=== PATIENT | female | born 1950 | race American Indian/Alaskan Native ===

== ENCOUNTER 2016-08-24 00:24 | Inpatient (IN) | payer MEDICARE, BC ==
[2016-08-24 00:52] VITALS: BMI 34.7
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
[2016-08-24 02:03] LABS: HEMATOCRIT 36.2 % (36.0-48.0); MEAN CORPUSCULAR HGB CONC 33.7 g/dl (31.0-37.0); MEAN PLATELET VOLUME 13.4 fl (7.0-11.0); RED CELL DISTRIBUTION WIDTH 13.4 % (11.5-14.5); WHITE BLOOD COUNT 8.5 10^3/ul (4.5-11.0)
[2016-08-24 02:07] LABS: ALB/GLOB RATIO 1.1 (1.1-1.8); ALKALINE PHOSPHATASE 118 U/L (38-133); ALT/SGPT 32 U/L (7-56); AST/SGOT 24 U/L (15-39); BILIRUBIN,TOTAL 0.3 mg/dL (0.2-1.3); BLOOD UREA NITROGEN 17 mg/dL (7-21); CALCIUM 8.7 mg/dL (8.4-10.5); CARBON DIOXIDE 26 mmol/L (21-33); CHLORIDE 110 mmol/L (98-107); GFR AFRICAN-AMERICAN > 60; GLUCOSE,RANDOM 104 mg/dL (70-110); POTASSIUM 3.9 mmol/L (3.6-5.0); SODIUM 142 mmol/L (132-148); TOTAL PROTEIN 6.9 g/dL (5.8-8.3)
[2016-08-24 02:09] LABS: PARTIAL THROMBOPLASTIN TIME 28.9 Seconds (23.7-30.8)
[2016-08-24] MEDS ORDERED: Vancomycin 1gm in NS 250ml 1 GM/250 ML BAG IVPB STA (03:52)
[2016-08-24] MEDS ORDERED: Piperacillin/Tazobact 3.375 gm 100 ML IV STA (03:52)
[2016-08-24] MEDS ORDERED: Piperacillin/Tazobact 3.375 gm 100 ML IVPB SCH (09:45)
--- NOTE | 2016-08-24 11:54 | RAD ---
PROCEDURE: Radiographs of the right great toe. TECHNIQUE:: AP radiograph of the right foot, with oblique and lateral view of the right great toe. COMPARISON: None. FINDINGS: BONES: Normal. No fracture. JOINTS: Normal. SOFT TISSUES: Normal. OTHER FINDINGS: None. IMPRESSION: Normal right great toe radiographs.
--- NOTE | 2016-08-24 13:25 | US ---
HISTORY: Leg pain and swelling. Evaluate for DVT PHYSICIAN(S): Nael Ariza MD. TECHNIQUE: Duplex sonography and color-flow Doppler with graded compression were used to evaluate the deep venous systems of both lower extremities. FINDINGS: The visualized deep venous systems of both lower extremities are sonographically normal and compressible. Normal wave forms and augmentation are seen. There is no sonographic evidence for deep venous thrombosis in the visualized segments of both lower extremities. IMPRESSION: No sonographic evidence for deep venous thrombosis in the visualized segments of both lower extremities.
--- NOTE | 2016-08-24 13:34 | CP.PCM.CON ---
History of Present Illness - History of Present Illness History of Present Illness: 66 year old male with PMH of HTN, obesity with BMI 35 came in to [facility] complaining of bilateral lower extremity swelling, with the right leg more swollen than the left, associated with pain and redness which worsened in the past 2-3 days. She apparently injured her foot about 2 months ago and since then her right leg has been giving her trouble, but this is worse than previous episodes according to the patient. She also had a wound on the right leg a month ago, which has apparently healed. She denies very recent trauma, no wading or swimming, no walking barefoot on soil, denies animal contacts. She denies fever or chills, no nausea or vomiting, no headache or dizziness, no chest pain, no SOB, no abdominal pain, no diarrhea, no dysuria, no sore throat, no cough or rhinorrhea. Infectious diseases consult is requested to further evaluate and manage. Review of Systems - Review of Systems All systems: reviewed and no additional remarkable complaints except (as per HPI ) Past Patient History - Infectious Disease Hx of Infectious Diseases: None - Past Social History Smoking Status: Current Some Days Smoker - CARDIAC Hx Cardiac Disorders: Yes Hx Hypertension: Yes - PULMONARY Hx Respiratory Disorders: No - NEUROLOGICAL Hx Neurological Disorder: No - HEENT Hx HEENT Problems: No - RENAL Hx Chronic Kidney Disease: No - ENDOCRINE/METABOLIC Hx Endocrine Disorders: No - HEMATOLOGICAL/ONCOLOGICAL Hx Blood Disorders: No - INTEGUMENTARY Hx Dermatological Problems: No - MUSCULOSKELETAL/RHEUMATOLOGICAL Hx Musculoskeletal Disorders: No - GASTROINTESTINAL Hx Gastrointestinal Disorders: No - GENITOURINARY/GYNECOLOGICAL Hx Genitourinary Disorders: No - PSYCHIATRIC Hx Psychophysiologic Disorder: No - SURGICAL HISTORY Hx Surgeries: No - ANESTHESIA Hx Anesthesia: No Hx Anesthesia Reactions: No Hx Malignant Hyperthermia: No Meds Allergies/Adverse Reactions: Allergies Allergy/AdvReac Type Severity Reaction Status Date / Time No Known Allergies Allergy Verified 05/11/16 12:18 Physical Exam - Constitutional Appears: Non-toxic, No Acute Distress - Head Exam Head Exam: NORMAL INSPECTION - ENT Exam ENT Exam: Mucous Membranes Moist - Neck Exam Neck exam: Negative for: Lymphadenopathy, Meningismus - Respiratory Exam Respiratory Exam: Decreased Breath Sounds - Cardiovascular Exam Cardiovascular Exam: +S1, +S2 - GI/Abdominal Exam GI & Abdominal Exam: Soft. absent: Tenderness - Extremities Exam Additional comments: some swelling and mild erythema of the right lower extremity, minimal tenderness noted; no purulence or discharge noted Results - Vital Signs Recent Vital Signs: Last Vital Signs Temp 97.7 F 08/24/16 06:12 Pulse 67 08/24/16 06:12 Resp 18 08/24/16 06:12 BP 158/73 H 08/24/16 06:12 Pulse Ox 98 08/24/16 04:19 - Labs Result Diagrams: 08/24/16 01:45 08/24/16 01:45 Assessment & Plan - Assessment and Plan (Free Text) Plan: Assessment Consider right lower extremity non-purulent cellulitis R/O DVT HTN obesity with BMI 35 Plan Started patient on Ceftaroline pending blood cx; follow up ultrasound of the leg to rule out DVT Will monitor clinically
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
[2016-08-25 07:18] LABS: MEAN CELL VOLUME 86.2 fL (80.0-105.0); MEAN CORPUSCULAR HEMOGLOBIN 28.1 pg (25.0-35.0); MEAN CORPUSCULAR HGB CONC 32.6 g/dl (31.0-37.0); MEAN PLATELET VOLUME 13.5 fl (7.0-11.0); RED CELL DISTRIBUTION WIDTH 13.2 % (11.5-14.5); WHITE BLOOD COUNT 6.8 10^3/ul (4.5-11.0)
[2016-08-25 07:35] LABS: ALKALINE PHOSPHATASE 99 U/L (38-133); ALT/SGPT 35 U/L (7-56); AST/SGOT 24 U/L (15-39); BILIRUBIN,TOTAL 0.4 mg/dL (0.2-1.3); BLOOD UREA NITROGEN 16 mg/dL (7-21); CALCIUM 8.6 mg/dL (8.4-10.5); CARBON DIOXIDE 26 mmol/L (21-33); CHLORIDE 108 mmol/L (95-110); GFR AFRICAN-AMERICAN > 60; GLUCOSE,RANDOM 109 mg/dL (70-110); POTASSIUM 4.4 mmol/L (3.6-5.0); SODIUM 139 mmol/L (132-148); TOTAL PROTEIN 6.7 g/dL (5.8-8.3); URIC ACID 3.4 mg/dL (2.5-6.2)
--- NOTE | 2016-08-25 08:53 | PN ---
DATE: 08/25/2016 I saw her resting comfortable out of bed with her legs elevated in a chair. She is doing better. She has a nonpurulent cellulitis, which is finally improving. She can now put weight on her feet, and she could walk a little bit. MEDICATIONS: She is on ceftaroline, Norvasc, and Ultram. I am hoping that maybe tomorrow she can be changed to p.o. and go home. PHYSICAL EXAMINATION: VITAL SIGNS: She has a 98 temp, 73 pulse. Blood pressure is a little bit high at 177/83. Respiratory rate 18 and 98% O2 sat on room air. HEAD: Atraumatic, normocephalic. HEART: Regular rate. LUNGS: Decreased breath sounds, but clear to auscultation. ABDOMEN: Soft, obese, nontender. EXTREMITIES: Less swollen. Right first toe is still red, not as bad, clearing. I think the antibiotics are helpful and needed. LABORATORY DATA: Sodium 139, potassium 4.4. BUN 16, creatinine 0.6. GFR is greater than 60. Sugar is 109. . Calcium is 8.6. Total bili is 0.4. AST is 24. ALT is 35, alk phos 99, total protein 6.7. Albumin is 3.4. White count 6.8, hemoglobin 12.4, hematocrit 38. Platelets are 141. INR is 1. Being seen by infectious disease, await podiatry today. If things go well, I am going to try and change her to tablets tomorrow. She is improving nicely, and start to walk on it today, and we will continue with aggressive treatment and care. The patient had a bad cellulitis and is now improving. Bennett Savage DO cc: [id number] TT: 08/25/2016 08:52:03 Confirmation # [id number] Dictation # [id number] jn MTDD
--- NOTE | 2016-08-25 17:34 | CON ---
DATE: 08/25/2016 HISTORY OF PRESENT ILLNESS: This is a 66-year-old female seen for pain to her right big toe. The pa katya states she banged the toe back in 06/2016 and the toe never really felt better and now the pain is going from the toe all the way up the side of her foot on the medial aspect is where she is point ing. The patient states that she has no fever or chills. No nausea or vomiting. She has pain with walking, and the pain is aching in nature. PAST MEDICAL HISTORY: Positive for hypertension and she is taking Norvasc for same. SOCIAL HISTORY: She does smoke. She does not use alcohol or drugs. ALLERGIES: No known drug allergies. REVIEW OF SYSTEMS: The patient is seen at bedside. She is alert and oriented. She does state that the foot hurts and she is concerned because the whole leg blew up and she does not know why. She had a foot x-ray and lower extremity ultrasounds done. I did review the foot x-ray and the foot x-ray w as negative for any fractures or dislocation. The ultrasound was within normal limits for her vascul ar system to the lower extremities. MEDICATIONS: Noted on the JUN. She is presently on Teflaro as per infectious disease. LABORATORY DATA: Show white blood cell count 8.5 when she was admitted yesterday; today, 6.8. Rest of the CBC was within normal limits, and her chemistry also is within normal limits. PHYSICAL EXAMINATION: The patient's foot was examined. She does have a +1 edema to the foot. She h as some local redness around the hallux. There is edema to the hallux. There is no fluctuance. The re is no ascending cellulitis. There is some mild calor noted to the foot, especially around the for efoot and the hallux. What is noted is that there are fungal nails which apparently have spread to t he skin. There is secondary scaling of the skin, and in the area on the plantar aspect of the hallux where the patient is complaining of pain there is a buildup of the scales causing almost fissure but not quite a fissured skin. ASSESSMENT: Cellulitis and pain to the right foot great toe, rule out gout, rule out tinea pedis. PLAN OF TREATMENT: The patient was ordered Lotrimin for fungal and we ordered a uric acid to rule ou t gout. The patient will be seen in followup. Alla Augustin DPM cc: [id number] TT: 08/25/2016 17:33:29 Confirmation # [id number] Dictation # [id number] mn
[2016-08-25] MEDS: Clotrimazole 1% Cream(30 gm) TOP SCH (18:22)
--- NOTE | 2016-08-25 18:55 | CP.PCM.PN ---
Subjective - Date & Time of Evaluation Date of Evaluation: 08/25/16 Time of Evaluation: 09:50 - Subjective Subjective: Comfortable, improved swelling of right leg, but still with pain of the right hallux. Objective - Vital Signs/Intake and Output Vital Signs (last 24 hours): Temp Pulse Resp BP Pulse Ox 98.0 F 73 18 165/87 H 98 08/25/16 07:24 08/25/16 07:24 08/25/16 07:24 08/25/16 10:25 08/25/16 07:24 Intake and Output: 08/25/16 08/25/16 06:59 18:59 Intake Total 1020 720 Balance 1020 720 - Medications Medications: Current Medications Amlodipine Besylate (Norvasc) 10 mg PO DAILY [facility] Last Admin: 08/25/16 10:25 Dose: 10 mg Clotrimazole (Lotrimin 1%) 0 gm TOP BID [facility] Last Admin: 08/25/16 18:22 Dose: 1 units Ceftaroline Fosamil 400 mg/ (Sodium Chloride) 100 mls @ 100 mls/hr IVPB Q12 YAMILA PRN Reason: Protocol Stop: 09/01/16 11:16 Last Admin: 08/25/16 10:26 Dose: 100 mls/hr Tramadol HCl (Ultram) 50 mg PO TID PRN PRN Reason: Pain, moderate (4-7) Last Admin: 08/24/16 18:28 Dose: 50 mg - Labs Labs: 08/25/16 06:30 08/25/16 06:30 PT 10.8 Seconds (9.9-11.8) 08/24/16 01:45 INR 1.00 (0.93-1.08) 08/24/16 01:45 APTT 28.9 Seconds (23.7-30.8) 08/24/16 01:45 - Constitutional Appears: Non-toxic, No Acute Distress - Head Exam Head Exam: NORMAL INSPECTION - ENT Exam ENT Exam: Mucous Membranes Moist - Neck Exam Neck Exam: absent: Lymphadenopathy, Meningismus - Respiratory Exam Respiratory Exam: Decreased Breath Sounds - Cardiovascular Exam Cardiovascular Exam: +S1, +S2 - GI/Abdominal Exam GI & Abdominal Exam: Soft. absent: Tenderness - Extremities Exam Additional comments: right leg with improved swelling, still with some tenderness of the right hallux Assessment and Plan - Assessment and Plan (Free Text) Plan: Assessment Consider right lower extremity non-purulent cellulitis, R/O gout on the right hallux HTN obesity with BMI 35 Plan continue Ceftaroline day 2; blood cx are negative; ultrasound of the leg does not show DVT Reviewed Podiatry evaluation Will monitor clinically
[2016-08-26 06:54] LABS: HEMATOCRIT 39.4 % (36.0-48.0); MEAN CELL VOLUME 84.9 fL (80.0-105.0); MEAN PLATELET VOLUME 12.8 fl (7.0-11.0); WHITE BLOOD COUNT 6.4 10^3/ul (4.5-11.0)
[2016-08-26 08:03] VITALS: PULSE 51; RESP 20; TEMP 98.7; O2SAT 99
[2016-08-26 08:48] LABS: ALKALINE PHOSPHATASE 97 U/L (38-133); ALT/SGPT 31 U/L (7-56); AST/SGOT 32 U/L (15-39); BILIRUBIN,TOTAL 0.4 mg/dL (0.2-1.3); BLOOD UREA NITROGEN 12 mg/dL (7-21); CALCIUM 8.9 mg/dL (8.4-10.5); CARBON DIOXIDE 28 mmol/L (21-33); CHLORIDE 106 mmol/L (98-107); GFR AFRICAN-AMERICAN > 60; GLUCOSE,RANDOM 90 mg/dL (70-110); POTASSIUM 4.4 mmol/L (3.6-5.0); SODIUM 137 mmol/L (132-148); TOTAL PROTEIN 6.7 g/dL (5.8-8.3)
[2016-08-26] MEDS: Clotrimazole 1% Cream(30 gm) TOP SCH (09:37)
[2016-08-26 09:39] VITALS: BP 158/70
--- NOTE | 2016-08-26 13:29 | DS ---
I saw the patient resting comfortably out of bed to chair. She is doing much better. She can walk o n her foot better. The toe is less swollen, less red, big difference from 2 days ago. The medicines really worked well. PHYSICAL EXAMINATION: VITAL SIGNS: She has 98.7 temp, 51 pulse, 158/65 blood pressure, 20 respiratory rate, 99% O2 sat on room air. HEENT: Head is atraumatic, normocephalic. Throat is moist. NECK: Supple. HEART: Regular rate. LUNGS: Decreased breath sounds, but clear to auscultation. ABDOMEN: Soft, nontender, positive bowel sounds. EXTREMITIES: The toe looks so much better, not swollen, not red. I discussed it with infectious disease. We could discharge her on doxycycline. She will go home on doxycycline for 8 days, Lotrimin cream, Norvasc, and Ultram. LABORATORY DATA: She has a 6.4 white count, 13 hemoglobin, 39.4 hematocrit with 126 platelets. Sodi um 137, potassium 4.4, BUN 12, creatinine 0.6, GFR is greater than 60, sugar is 90, calcium is 8.9, t otal bili is 0.4, AST is 32, ALT is 31, alk phos 97, total protein 6.7. Uric acid is 3.4. She is going to follow up with her primary care doctor. She was here for cellulitis of the right fir st toe. She did very well. She had a little hypertension and she is discharged today. She should f ollow up with her primary care doctor in 4 days and I reconciled the meds with the nurse. Bennett Savage DO cc: [id number] TT: 08/26/2016 13:28:35 hi
--- NOTE | 2016-08-26 17:54 | CP.PCM.PN ---
Subjective - Date & Time of Evaluation Date of Evaluation: 08/26/16 Time of Evaluation: 11:10 - Subjective Subjective: Comfortable in bed, not in distress. Right leg is much improved although still complaining of pain in the right toe area. Redness is much improved. Objective - Vital Signs/Intake and Output Vital Signs (last 24 hours): Temp Pulse Resp BP Pulse Ox 98.7 F 51 L 20 158/70 H 99 08/26/16 07:30 08/26/16 07:30 08/26/16 07:30 08/26/16 09:37 08/26/16 07:30 Intake and Output: 08/26/16 08/26/16 06:59 18:59 Intake Total 1080 760 Balance 1080 760 - Labs Labs: 08/26/16 06:15 08/26/16 06:15 PT 10.8 Seconds (9.9-11.8) 08/24/16 01:45 INR 1.00 (0.93-1.08) 08/24/16 01:45 APTT 28.9 Seconds (23.7-30.8) 08/24/16 01:45 - Constitutional Appears: Non-toxic, No Acute Distress - Head Exam Head Exam: NORMAL INSPECTION - ENT Exam ENT Exam: Mucous Membranes Moist - Neck Exam Neck Exam: absent: Lymphadenopathy, Meningismus - Respiratory Exam Respiratory Exam: Decreased Breath Sounds - Cardiovascular Exam Cardiovascular Exam: +S1, +S2 - GI/Abdominal Exam GI & Abdominal Exam: Soft. absent: Tenderness - Extremities Exam Additional comments: right foot with much improved swelling and erythema and tenderness Assessment and Plan - Assessment and Plan (Free Text) Plan: Assessment Consider right lower extremity non-purulent cellulitis, clinically improved HTN obesity with BMI 35 Plan on Ceftaroline day 3; blood cx are negative; ultrasound of the leg does not show DVT Reviewed Podiatry evaluation Discussed with Dr. Savage - when ready for discharge, she can be switched to PO doxycycline and Augmentin to complete another 5-7 days of therapy, with outpatient follow up with PMD; suggest follow up with Podiatry with regards to her right hallux - discussed this with the patient
--- NOTE | 2016-08-27 08:26 | PN ---
DATE: 08/26/2016 A 66-year-old female seen at bedside for continued evaluation and management of recent bout of cellul itis to her right great toe. The patient was being seen at the wound center and her toe continued to become edematous and erythematous in lieu of fever, chills, nausea or vomiting. She was told to com e to the Emergency Room for admittance for cellulitis. VITAL SIGNS: Reveal a temperature of 98.7, pulse rate of 51, blood pressure 158/65, respiratory rate of 20. LABORATORY DATA: Microbiology report reveals a white count of 6.4, hemoglobin of 13, hematocrit of 3 9.4, platelet count of 126. X-ray report reveals no radiographic evidence of osteomyelitis at the af fected area and venous Doppler reveals no sonographic evidence of deep vein thrombosis of either lowe r extremity. PHYSICAL EXAMINATION: The patient has weakly palpable pedal pulses noted bilaterally, +1 lower extre mity edema noted bilaterally. Right great toe presents with edema and erythema, but it is localized and no signs of ascending cellulitis. ASSESSMENT: Resolving cellulitis and pain to the right great toe. PLAN AND TREATMENT: Gout has been ruled out. The patient's white count is within normal limits and her right great toe overall has decreased in edema and erythema. She will be discharged home today o n oral antibiotics and will follow up at the wound center early next week. Jim Evans DPM cc: [id number] TT: 08/26/2016 18:06:10 Confirmation # [id number] Dictation # [id number]
== END 2016-08-26 12:55 | disposition home or self-care (01) | DRG 603 ==
LOC: ED 00:24 → OBSVTOIN 03:46 → ERH 03:46 → 5RNO 05:10
PROVIDERS: ADMIT Internal Medicine; ATTEND Family Medicine
DX: L03.115 Cellulitis of right lower limb (principal); I10 Essential (primary) hypertension; F17.200 Nicotine dependence, unspecified, uncomplicated; Z68.35 Body mass index [BMI] 35.0-35.9, adult; E66.9 Obesity, unspecified

== ENCOUNTER 2016-10-06 14:38 | Emergency (ER) | payer MEDICARE ==
[2016-10-06 14:39] VITALS: BMI 34.7
[2016-10-06 15:04] VITALS: RESP 18; TEMP 98.2
[2016-10-06 15:11] LABS: BASO # 0.02 K/mm3 (0.0-2.0); BASO % 0.2 % (0.0-3.0); EOS # 0.1 (0.0-0.7); EOS % 1.1 % (1.5-5.0); GRAN # 4.81 (1.4-6.5); GRAN % 57.7 % (50.0-68.0); LYMPH # 2.7 (1.2-3.4); LYMPH % 31.7 % (22.0-35.0); MEAN CELL VOLUME 86.9 fL (80.0-105.0); MEAN CORPUSCULAR HEMOGLOBIN 28.6 pg (25.0-35.0); MEAN CORPUSCULAR HGB CONC 32.9 g/dl (31.0-37.0); MEAN PLATELET VOLUME 12.8 fl (7.0-11.0); MONO # 0.8 (0.1-0.6); MONO % 9.3 % (1.0-6.0); PLATELET COUNT 123 10^3/uL (120.0-450.0); RBC 4.89 10^6/uL (3.5-6.1); RED CELL DISTRIBUTION WIDTH 13.2 % (11.5-14.5); WHITE BLOOD COUNT 8.4 10^3/ul (4.5-11.0)
[2016-10-06 15:20] LABS: ALB/GLOB RATIO 1.1 (1.1-1.8); ALBUMIN 4.2 g/dL (3.0-4.8); ALT/SGPT 30 U/L (7-56); AST/SGOT 28 U/L (15-39); BLOOD UREA NITROGEN 15 mg/dL (7-21); CALCIUM 9.5 mg/dL (8.4-10.5); GFR AFRICAN-AMERICAN > 60; GFR NON-AFRICAN AMERICAN > 60; INR 1.04 (0.93-1.08); LIPASE 1467 U/L (23-300); PARTIAL THROMBOPLASTIN TIME 29.5 Seconds (23.7-30.8); PROTHROMBIN TIME 11.2 Seconds (9.9-11.8)
--- NOTE | 2016-10-06 15:22 | RAD ---
HISTORY: cough COMPARISON: 05/14/2016 FINDINGS: LUNGS: No active pulmonary disease. PLEURA: No significant pleural effusion identified, no pneumothorax apparent. CARDIOVASCULAR: Normal. OSSEOUS STRUCTURES: No significant abnormalities. VISUALIZED UPPER ABDOMEN: Normal. OTHER FINDINGS: None. IMPRESSION: No active disease.
--- NOTE | 2016-10-06 15:26 | ED PDOC ---
Arrival/HPI - General Chief Complaint: Abdominal Pain Time Seen by Provider: 10/06/16 14:48 Historian: Patient - History of Present Illness Narrative History of Present Illness (Text): 10/06/16 15:27 A 66 year old female, whose past medical history includes hypertension, presents to the emergency department complaining of diaphoresis, retrosternal chest pain and epigastric abdominal pain for the past 5 hours. Pain is on and off and nothing makes it better or worse. Reports she had similar symptoms a year ago. Denies any other complaints at this time. Time/Duration: 4-6 hours Symptom Onset: Sudden Symptom Course: Unchanged Activities at Onset: Rest Context: Home Past Medical History - Provider Review Nursing Documentation Reviewed: Yes - Infectious Disease Hx of Infectious Diseases: None - Cardiac Hx Cardiac Disorders: Yes Hx Hypertension: Yes - Pulmonary Hx Respiratory Disorders: No - Neurological Hx Neurological Disorder: No - HEENT Hx HEENT Disorder: No - Renal Hx Renal Disorder: No - Endocrine/Metabolic Hx Endocrine Disorders: No - Hematological/Oncological Hx Blood Disorders: No - Integumentary Hx Dermatological Disorder: No - Musculoskeletal/Rheumatological Hx Musculoskeletal Disorders: Yes Hx Back Pain: Yes - Gastrointestinal Hx Gastrointestinal Disorders: No - Genitourinary/Gynecological Hx Genitourinary Disorders: No - Psychiatric Hx Psychophysiologic Disorder: No Hx Substance Use: No - Anesthesia Hx Anesthesia: No Hx Anesthesia Reactions: No Hx Malignant Hyperthermia: No Family/Social History - Physician Review Nursing Documentation Reviewed: Yes Family/Social History: No Known Family HX Smoking Status: Current Some Days Smoker Hx Alcohol Use: No Hx Substance Use: No Allergies/Home Meds Allergies/Adverse Reactions: Allergies No Known Allergies Allergy (Verified 10/06/16 14:45) Review of Systems - Physician Review All systems were reviewed & negative as marked: Yes Physical Exam - Physical Exam Narrative Physical Exam (Text): 10/06/16 15:26- Review of Systems Constitutional: Normal. absent: Fatigue, Weight Change, Fevers Eyes: Normal ENT: Normal Respiratory: Normal absent: SOB, Cough, Sputum Cardiovascular: chest pain absent: Palpitations, Syncope Gastrointestinal: epigastric pain absent: Diarrhea, Nausea, Vomiting Genitourinary: Normal. absent: Dysuria, Frequency, Hematuria Musculoskeletal: Normal. absent: Arthralgias, Back Pain, Neck Pain Skin: Normal Neurological: Normal absent: Focal Weakness Endocrine: diaphoresis Hemo/Lymphatic: Normal Psychiatric: Normal - Physical exam Patient appears age appropriate, speaking full sentences without difficulty - Systems Exam Head: Present: Atraumatic, Normocephalic Pupils: Present: PERRL Extraocular Muscles: Present: EOMI Conjunctiva: Present: Normal Mouth: Present: Moist Mucous Membranes Neck: Present: Normal Range of Motion. No: MIDLINE TENDERNESS, Paraspinal Tenderness Respiratory/Chest: Present: Clear to Auscultation, Good Air Exchange. No: Respiratory Distress, Accessory Muscle Use, Tachypnic Cardiovascular: Present: Regular Rate and Rhythm, Normal S1, S2, Peripheral Pulses Present. No: Murmurs Abdomen: Present: Epigastric tenderness to palpation, Normal Bowel Sounds, No: Peritoneal Signs, Rebound, Guarding, Distention Back: Present: Normal Inspection. No: Midline Tenderness, Paraspinal Tenderness Upper Extremity: Present: Normal Inspection. No: Cyanosis, Edema Lower Extremity: Present: Normal Inspection. No: Edema Neurological: Present: GCS=15, Speech Normal, cranial nerves II through XII fully intact with no cerebellar abnormality, neuro-sensory fully intact. No focal neurological deficits. Skin: Present: Warm, Dry, Normal Color. No: Rashes Lymphatic: Present: OX3, NI, NC Psychiatric: Present: Alert, Oriented x 3, Normal Insight, Normal Concentration Vital Signs Reviewed: Yes Vital Signs Temp Pulse Resp BP Pulse Ox 10/06/16 17:35 65 18 156/71 H 99 10/06/16 16:33 64 18 155/69 H 99 10/06/16 15:52 60 18 157/73 H 99 10/06/16 15:03 98.2 F 72 18 162/77 H 98 Temperature: Afebrile Blood Pressure: Hypertensive Pulse: Regular Respiratory Rate: Normal Appearance: Positive for: Well-Appearing, Non-Toxic, Comfortable Pain Distress: None Mental Status: Positive for: Alert and Oriented X 3 Medical Decision Making ED Course and Treatment: 10/06/16 15:21 Impression: A 66 year old female with retrosternal chest pain, epigastric pain and diaphoresis. On physical exam, patient has epigastric tenderness to palpation. Differential Diagnosis included but are not limited to: ACS vs. nonspecific abdominal pain Plan: -- EKG -- chest xray -- US abdomen -- labs -- Aspirin, Nitroglycerin, Protonix -- Reassess and disposition Prior Visits: Notes and results from previous visits were reviewed. Patient last reported to the emergency department on 08/24/16 for evaluation of right lower extremity swelling. Admitted to [facility] for cellulitis under Dr. Savage's service. Patient was discharged on 08/26/16. Progress Notes: EKG: Ordered, reviewed, and independently interpreted the EKG. Rate : 48 BPM Rhythm : sinus bradycardia Interpretation : No ST segment elevations, normal intervals 10/06/16 15:24 chest xray: Creator : Kevin Guidry MD IMPRESSION: No active disease. 10/06/16 17:40 lipase elevated no acute findings on US The patient refuses admission and wishes to leave the Emergency Department against my medical advice. Patient was told that admission to the hospital is necessary and a full explanation of the reasons why was given, and understood by patient. The risks of leaving were explained and include worsening of condition, and permanent disability and from an undiagnosed or untreated condition. The patient accepts these risks, and is in my judgment is competent and capable of understanding the clinical situation and my explanation of the risks of leaving. Patient was given the opportunity to ask questions and change mind. The patient was instructed regarding the best care for the present symptoms, and to follow up with Dr. Balderrama as soon as possible, or return to the Emergency Department at any time for continuing care. - Lab Interpretations Lab Results: 10/06/16 15:00 10/06/16 15:00 Lab Results 10/06/16 15:00: Sodium 138, Potassium 4.0, Chloride 105, Carbon Dioxide 26, Anion Gap 11, BUN 15, Creatinine 0.6, Est GFR ( Amer) > 60, Est GFR (Non- Af Amer) > 60, Random Glucose 120 H, Calcium 9.5, Total Bilirubin 0.5, AST 28, ALT 30, Alkaline Phosphatase 113, Lactate Dehydrogenase 528, Total Creatine Kinase 229, Troponin I < 0.01, NT-Pro-B Natriuret Pep 113, Total Protein 8.1, Albumin 4.2, Globulin 3.9, Albumin/Globulin Ratio 1.1, Lipase 1467 H 10/06/16 15:00: PT 11.2, INR 1.04, APTT 29.5 10/06/16 15:00: WBC 8.4 D, RBC 4.89, Hgb 14.0, Hct 42.5, MCV 86.9, MCH 28.6, MCHC 32.9, RDW 13.2, Plt Count 123, MPV 12.8 H, Gran % 57.7, Lymph % (Auto) 31.7 , Turner % (Auto) 9.3 H, Eos % (Auto) 1.1 L, Baso % (Auto) 0.2, Gran # 4.81, Lymph # 2.7, Turner # 0.8 H, Eos # 0.1, Baso # 0.02 I have reviewed the lab results: Yes - RAD Interpretation Radiology Orders: 10/06/16 15:00 CHEST PORTABLE [RAD] Stat 10/06/16 15:39 ABDOMEN COMPLETE [US] Stat - EKG Interpretation Interpreted by ED Physician: Yes Type: 12 lead EKG - Medication Orders Current Medication Orders: Sodium Chloride (Sodium Chloride 0.9%) 1,000 mls @ 1,000 mls/hr IV .Q1H STA Stop: 10/06/16 17:39 Last Admin: 10/06/16 16:43 Dose: 1,000 mls/hr Discontinued Medications Aspirin (Aspirin Chewable) 324 mg PO STAT STA Stop: 10/06/16 15:12 Last Admin: 10/06/16 15:24 Dose: 324 mg Morphine Sulfate (Morphine) 6 mg IVP STAT STA Stop: 10/06/16 16:41 Last Admin: 10/06/16 16:44 Dose: Not Given Non-Admin Reason: Patient Lethargic Nitroglycerin (Nitrostat Sl Tab) 0.3 mg SL STAT STA Stop: 10/06/16 15:12 Last Admin: 10/06/16 15:24 Dose: 0.3 mg Pantoprazole Sodium (Protonix Inj) 40 mg IVP STAT STA Stop: 10/06/16 15:12 Last Admin: 10/06/16 15:24 Dose: 40 mg - Scribe Statement The provider has reviewed the documentation as recorded by the Sarath Duarte Provider Scribe Attestation: All medical record entries made by the Ckibdewayne were at my direction and personally dictated by me. I have reviewed the chart and agree that the record accurately reflects my personal performance of the history, physical exam, medical decision making, and the department course for this patient. I have also personally directed, reviewed, and agree with the discharge instructions and disposition. Disposition/Present on Arrival - Present on Arrival Any Indicators Present on Arrival: No History of DVT/PE: No History of Uncontrolled Diabetes: No Urinary Catheter: No History of Decub. Ulcer: No History Surgical Site Infection Following: None - Disposition Have Diagnosis and Disposition been Completed?: Yes Diagnosis: Abdominal pain Disposition: AGAINST MEDICAL ADVICE Disposition Time: 17:42 Patient Plan: Discharge Condition: GUARDED Discharge Instructions (ExitCare): Abdominal Pain (ED), Pancreatitis (ED) Additional Instructions: PLEASE RETURN TO THE EMERGENCY DEPARTMENT FOR NEW OR WORSENING SYMPTOMS. RETURN RIGHT AWAY IF YOU CANNOT FOLLOW UP WITH YOUR PRIMARY CARE DOCTOR, CLINIC, OR SPECIALIST IN 1-2 DAYS. Referrals: Noble Balderrama MD [Primary Care Provider] - Follow up with primary
[2016-10-06 15:32] LABS: B-TYPE NATRIURETIC PEPTIDE 113 pg/mL (0-450)
[2016-10-06 15:35] LABS: TROPONIN I < 0.01 ng/mL
[2016-10-06 15:52] VITALS: O2SAT 99
[2016-10-06] MEDS ORDERED: Sodium Chloride 0.9% 1,000 ML IV STA (16:40)
--- NOTE | 2016-10-06 17:31 | US ---
HISTORY: RIGHT SIDED ABD PAIN COMPARISON: None. TECHNIQUE: Sonographic evaluation of the abdomen. FINDINGS: LIVER: Measures 13.3 cm. Hepatopedal blood flow. Fatty infiltration manifest ultrasonographically as increased echogenicity of the liver parenchyma. No mass. No intrahepatic bile duct dilatation. GALLBLADDER: Status post cholecystectomy. No abnormality is seen in the gallbladder fossa. COMMON BILE DUCT: Measures 7.3 mm. No stones. No dilatation. PANCREAS: Unremarkable as visualized. No mass. No ductal dilatation. RIGHT KIDNEY: Measures 4.5 x 12.1cm. Normal echogenicity. No calculus, mass, or hydronephrosis. LEFT KIDNEY: Measures 5.7 x 11.1cm. Normal echogenicity. No calculus, mass, or hydronephrosis. Incompletely visualized thus unable to characterize cyst lower pole left kidney 1.3 cm. SPLEEN: Normal in size and contour. No mass. AORTA: No aneurysmal dilatation. IVC: Unremarkable. OTHER FINDINGS: None. IMPRESSION: No acute findings related to/accounting for the clinical presentation.Additional benign and/or incidental findings described above.
[2016-10-06 17:36] VITALS: BP 156/71; PULSE 65
--- NOTE | 2016-10-07 08:52 | CARD ---
APPROVED REPORT EKG Measurement Heart [id number] DC [id number] <Conclusion> Marked sinus bradycardia Minimal voltage criteria for LVH, may be normal variant Abnormal ECG
== END 2016-10-06 17:48 | disposition left against medical advice (07) ==
LOC: ED 14:38
DX: R10.9 Unspecified abdominal pain (principal); I10 Essential (primary) hypertension; Z72.0 Tobacco use
CPT/HCPCS: 71010; 76700; 80053; 82550; 83615; 83690; 83880; 84484; 85025; 85610; 85730; 93005; 96361; 96374; 99285; C9113; J7040